=== PATIENT | female | born 1995 | race Caucasian/White ===

== ENCOUNTER 2016-10-27 14:35 | Observation (INO) | payer SELFPAY ==
[~2016-10-27] VITALS: Ht 157.5 cm; Wt 108.0 kg
[2016-10-27 15:16] VITALS: BP 121/64
[2016-10-27] MEDS: RINGERS SOLUTION,LACTATED 1,000 ML IV SCH ×2 (16:30→18:18)
[2016-10-27 16:44] LABS: APPEARANCE,URINE CLOUDY (CLEAR); GLUCOSE, URINE (UA) NEGATIVE (NEGATIVE); KETONES,URINE TRACE mg/dL (NEGATIVE); LEUKOCYTE ESTERASE ,URINE LARGE (NEGATIVE); OCCULT BLOOD,URINE LARGE (NEGATIVE); PROTEIN,URINE TRACE (NEGATIVE)
[2016-10-27 16:47] LABS: ADD UA MICROSCOPIC YES
[2016-10-27 16:56] LABS: SQUAMOUS EPITHELIAL CELL,UR Many /LPF (None Seen)
[2016-10-27 16:57] LABS: WBC,URINE >100 /HPF (0-5)
[2016-10-27] MEDS ORDERED: PNV1TABL62 PO (17:24)
== END 2016-10-27 21:40 | disposition home or self-care (01) ==
LOC: 4S 14:35
PROVIDERS: ADMIT Obstetrics & Gynecology; ATTEND Obstetrics & Gynecology
DX: O62.9 Abnormality of forces of labor, unspecified (principal); O26.893 Other specified pregnancy related conditions, third trimester; R10.9 Unspecified abdominal pain; M54.9 Dorsalgia, unspecified; O48.0 Post-term pregnancy; Z3A.41 41 weeks gestation of pregnancy
CPT/HCPCS: 59025; 76815; 80307 ×8; 81001; 87086; 87147; 96360; 96361; G0378; J7120